=== PATIENT | female | born 1980 | race Caucasian/White ===

== ENCOUNTER 2021-02-27 09:39 | Emergency (ER) | payer OTHER, SELFPAY ==
[2021-02-27 10:33] VITALS: BP 135/95; PULSE 98; RESP 16; TEMP 36.6; O2SAT 99
[2021-02-27 10:59] VITALS: BP 122/78; PULSE 88; RESP 20; TEMP 36.6; O2SAT 99
--- NOTE | 2021-02-27 11:20 | ED.URI ---
HPI - URI/Sore Throat General Chief Complaint: Allergic Reaction Stated Complaint: Allergic rx & Anxiety Time Seen by Provider: 02/27/21 11:03 History of Present Illness HPI Narrative: 40 yo female w/ h/o anxiety presents to the ED for a sore throat. She reports that after eating hamburger helper last night she began to develop pain and swelling in her throat. Last night she was feeling short of breath, but she took a benadryl and went to sleep. Today she reports that her throat feels mildly improved. She also reports chills and sweats, fatigue, nausea. She previously had COVID-19 and has been vaccinated. Related Data Home Medications Medication Instructions Recorded Confirmed No Home Medications 02/27/21 02/27/21 Allergies Allergy/AdvReac Type Severity Reaction Status Date / Time amoxicillin Allergy Unknown Verified 02/27/21 11:03 Review of Systems Review of Systems: All systems reviewed & are unremarkable except as noted in HPI and below Constitutional: Constitutional: Denies fever(s) Eyes: Eyes: Reports no additional eye complaints ENT: Reports nasal congestion Cardiovascular: Cardiovascular: Denies chest pain Respiratory: Respiratory: Reports dyspnea Gastrointestinal: Gastrointestinal: Denies abdominal pain and Reports nausea Genitourinary: Genitourinary: Reports no additional female genitourinary complaints Neurologic: Reports dizziness Psychiatric: Psychiatric: Reports anxiety [facility] Past Medical History Medical History (Updated 02/27/21 @ 12:01 by Emery Salguero MD) Anxiety COVID-19 Social History Social History (Updated 02/27/21 @ 11:57 by Emery Salguero MD) Gender identity (if verbalized by the patient): Female Sexual Orientation (if Verbalized by the Patient): Straight or Heterosexual Exam Const: General: healthy appearing, no acute distress and alert Orientation/consciousness: patient oriented x3 HENMT: Head: normal to inspection Throat: posterior oropharynx abnormal erythema (mild) Neck: Neck: normal visual inspection and no lymphadenopathy Chest: Chest palpation & inspection: no tenderness Resp: Effort & Inspection: normal respiratory effort Auscultation: clear to auscultation bilaterally, no rales, no rhonchi and no wheezes Cardio: Jugular venous distension: no JVD Rate: regular rate Rhythm: regular rhythm Heart sounds: no murmurs GI: Inspection: non-distended GI Palp: Yes Soft to palpation and No Tenderness to palpation present (GI) Skin: General skin exam: normal color Neuro: General: patient oriented x3 and moves all extremities Speech: normal speech Extrem: General: no edema Psych: Appearance: well kempt Affect: normal affect Course Vital Signs Vital signs: Vital Signs Temperature 36.6 C 02/27/21 10:33 Pulse Rate 98 02/27/21 10:33 Respiratory Rate 16 02/27/21 10:33 Blood Pressure 135/95 H 02/27/21 10:33 Pulse Oximetry 99 02/27/21 10:33 Temperature 36.6 C 02/27/21 10:59 Pulse Rate 88 02/27/21 10:59 Respiratory Rate 20 02/27/21 10:59 Blood Pressure 122/78 02/27/21 10:59 Pulse Oximetry 99 02/27/21 10:59 MDM - URI/Sore Throat Differential Diagnosis Differential diagnosis: Likely upper respiratory infection, pharyngitis and other (COVID, allergy) Medical Records Attestation: I reviewed the patient's medical records. Lab Data Attestation: I reviewed the patient's lab results. Labs: Lab Results 02/27/21 Range/Units 11:35 SARS-CoV-2 RNA (RT-PCR) Pending Strep Screen Presumptive Negative *(Reference Range: Negative)* Discharge Plan Discharge Clinical Impression: Sore throat Patient Disposition: Home, Self-Care Condition: Stable Instructions: Pharyngitis (ED) Prescriptions: No Action No Home Medications RF: 0 Follow-up/Referrals: Poirot,Inez Sprague NP [Primary Care Provider] -
[2021-02-27] MEDS: DEXAMETHASONE SOD PHOS INJ 4 MG/ML VIAL 10 MG IM (12:08)
[2021-02-27 20:12] LABS: SARS-CoV-2 RNA PCR Negative
== END 2021-02-27 12:12 | disposition home or self-care (01) ==
PROVIDERS: Emergency Provider Emergency Medicine; PCP Nurse Practitioner
DX: J02.9 Acute pharyngitis, unspecified (principal); F41.9 Anxiety disorder, unspecified; Z20.822 Contact with and (suspected) exposure to COVID-19; Z86.16 Personal history of COVID-19
CPT/HCPCS: 87081; 87880; 96372; 99283; C9803; J1100; U0003; U0005

== ENCOUNTER 2021-06-09 18:56 | Emergency (ER) | payer OTHER, SELFPAY ==
[2021-06-09 19:14] VITALS: BP 131/93; PULSE 91; RESP 18; TEMP 36.6; O2SAT 100
--- NOTE | 2021-06-09 19:38 | PC.NURSE ---
called at 193. no answer.
--- NOTE | 2021-06-09 19:59 | PC.NURSE ---
called pt again at this time and no answer.
== END 2021-06-10 02:06 | disposition left against medical advice (07) ==
LOC: ANHED 20:03
DX: M25.511 Pain in right shoulder (principal)
CPT/HCPCS: 99199